=== PATIENT | female | born 1965 | race Caucasian/White ===

== ENCOUNTER → 2018-06-03 | Outpatient (CLI) | payer BC ==
[~2018-06-03] MED LIST: CHOL10005 PO; LEVO50TA86 PO
--- NOTE | 2018-06-04 15:23 | RADIOLOGY IMAGING REPORT ---
FACILITY: [facility] PATIENT NAME: DRE CHERY : [id number] MR: [id number] V: [id number] EXAM DATE: [id number] ORDERING PHYSICIAN: GAUDENCIO LOAIZA TECHNOLOGIST: Antoinette Conde PROCEDURE:BILATERAL DIGITAL SCREENING MAMMOGRAM WITH CAD ASSISTED INTERPRETATION & 3D TOMOSYNTHESIS COMPARISON:Prior mammogram 03/05/2017 INDICATIONS:SCREENING FINDINGS: Breast tissue is heterogeneously dense. There is no suspicious mass, calcification, or architectural distortion. DIAGNOSTIC CATEGORY 1--NEGATIVE. RECOMMENDATIONS: ROUTINE MAMMOGRAM AND CLINICAL EVALUATION. IMPRESSION: BIRADS 1: Negative. No mammographic evidence for malignancy. Dictated by: Christopher Kidd M.D. on 06/04/2018 at 10:40 Transcribed by: [email or web address] on 06/04/2018 at 10:43 Approved by: Christopher Kidd M.D. on 06/04/2018 at 15:22 [facility]
== END ==
LOC: MAMO 03:11
PROVIDERS: ATTEND Nurse Practitioner Family
DX: Z12.31 Encounter for screening mammogram for malignant neoplasm of breast (principal)
CPT/HCPCS: 77063; 77067

== ENCOUNTER 2018-06-24 00:47 | Day surgery (SDC) | payer BC ==
[~2018-06-24] VITALS: Ht 152.4 cm; Wt 46.3 kg
[2018-06-24] VITALS (7 sets, daily range): BP systolic 78–131; BP diastolic 48–82
[2018-06-24] MEDS ORDERED: LIDOCAINE/SOD BICARB 8.4% SYR ID ONE (06:30)
[2018-06-24] MEDS ORDERED: NORMOSOL R SOLN(*) 1000 ML BAG 1,000 ML IV PRN (06:30)
[2018-06-24] MEDS ORDERED: PROPOFOL EMUL(*) 10MG/ML 20 ML 40 ML ONE (07:41)
--- NOTE | 2018-06-24 08:30 | Short(Outpt) Discharge Summary ---
Discharge Summary Reason for Hosp/Final Diag: (1) Family history of colon cancer Hospital Course & Plan: Colonoscopy with removal of large cecal polyp completed without problems. (2) Colon polyp Status: Chronic Departure Discharge to: Home, Self Care Discharge Instructions Home Meds Reported Medications Cholecalciferol (Vitamin D3) (VITAMIN D3) Unknown Strength Tablet, PO, TAB 05/21/18 Levothyroxine Sodium (LEVOTHYROXINE SODIUM) 50 Mcg Tablet, 50 MCG PO QDAY, TAB 05/21/18 Diet: Regular Activity: As Tolerated Special Instructions: Your colonoscopy was completed without problems and your prep was excellent (Good Job!!). I removed a large polyp from your cecum (the first part of your ascending colon; in the right lower quadrant of your abdomen). It was too large to remove in 1 piece and so I had to remove it in several pieces. My office will call you in the next week or so and let you know what the polyp is but, in any case, I recommend that we perform another colonoscopy in 6-12 months to reinspect this area to make sure it's not growing back. Problem Qualifiers (1) Colon polyp: Colon polyp type: adenomatous Colon location: ascending Qualified Codes: D12.2 - Benign neoplasm of ascending colon NERI GUAMAN MD Jun 24, 2018 08:29
== END 2018-06-24 09:30 | disposition home or self-care (01) ==
LOC: OR 00:47
PROVIDERS: ATTEND Surgery
DX: Z12.11 Encounter for screening for malignant neoplasm of colon (principal); D12.0 Benign neoplasm of cecum; Z80.0 Family history of malignant neoplasm of digestive organs
CPT/HCPCS: 00811; 45385; 88305; J2704